=== PATIENT | male | born 1980 | race Hispanic/Latino ===

== ENCOUNTER 2017-01-05 11:23 | Emergency (ER) | payer OTHER ==
[~2017-01-05] VITALS: Ht 170.2 cm; Wt 78.0 kg
[2017-01-05] MEDS ORDERED: PERCOCET 5/325M1 TAB PO (13:35)
[2017-01-05 13:41] VITALS: BP 114/83
== END 2017-01-05 13:49 | disposition home or self-care (01) | DRG 563 ==
LOC: ED 11:23
DX: S93.402A Sprain of unspecified ligament of left ankle, initial encounter (principal); X50.1XXA Overexertion from prolonged static or awkward postures, initial encounter; Y92.89 Other specified places as the place of occurrence of the external cause